=== PATIENT | male | born 2000 | race Caucasian/White ===

== ENCOUNTER 2024-03-13 10:55 | Observation (INO) | payer BC ==
[~2024-03-13] VITALS: Ht 198.1 cm; Wt 95.2 kg
[2024-03-13] MEDS: KETOROLAC 30 MG/ML 1ML VIAL IV ONE (12:55)
[2024-03-13] MEDS: NS 1,000 ML IV ONE (12:55)
[2024-03-13 12:59] LABS: BASO # 0.1 10^3/uL (0.0-0.2); BASO % 0.5 % (0.0-1.0); EOS # 0.4 10^3/uL (0.0-0.5); EOS % 2.7 % (0.0-3.0); HEMATOCRIT 46.4 % (42.0-52.0); HEMOGLOBIN 15.2 g/dl (13.5-17.5); LYMPH # 1.9 10^3/uL (1.5-5.0); LYMPH % 12.7 % (24.0-44.0); MEAN CORPUSCULAR HEMOGLOBIN 28.3 pg (27.0-33.0); MEAN CORPUSCULAR HGB CONC 32.8 g/dl (32.0-36.5); MEAN CORPUSCULAR VOLUME 86.2 fl (80.0-96.0); MONO # 1.7 10^3/uL (0.0-0.8); MONO % 11.1 % (2.0-8.0); NEUTROPHILS # 10.8 10^3/uL (1.5-8.5); NEUTROPHILS % 72.5 % (36.0-66.0); PLATELET COUNT, AUTOMATED 337 10^3/uL (150-450); RED BLOOD COUNT 5.38 10^6/uL (4.30-6.10); WHITE BLOOD COUNT 14.9 10^3/uL (4.0-10.0)
[2024-03-13] MEDS: AMPICILLIN SOD/SULBACTAM SOD 3 GM in D5W MINI-BAG PLUS 100 ML IV ONE (13:06)
[2024-03-13] MEDS: dexAMETHasone 20MG/5ML VIAL IV ONE (13:06)
[2024-03-13 13:19] LABS: ALBUMIN 4.2 G/DL (3.2-5.2); ALKALINE PHOSPHATASE 146 U/L (46-116); ALT/SGPT 25 U/L (7.0-40); AST/SGOT 13 U/L (<34); BILIRUBIN,TOTAL 1.8 MG/DL (0.3-1.2); BLOOD UREA NITROGEN 9 MG/DL (9-23); CALCIUM LEVEL 9.3 MG/DL (8.5-10.1); CARBON DIOXIDE LEVEL 30 MMOL/L (20-31); CHLORIDE LEVEL 101 MMOL/L (98-107); GLOMERULAR FILTRATION RATE > 60.0 (>60); GLUCOSE, FASTING 93 MG/DL (60-100); POTASSIUM SERUM 4.3 MMOL/L (3.5-5.1); SODIUM LEVEL 136 MMOL/L (136-145); TOTAL PROTEIN 7.7 G/DL (5.7-8.2)
[2024-03-13 13:49] LABS: MONO REFLEX EBV COMP NEGATIVE (NEGATIVE)
[2024-03-13] MEDS ORDERED: ISOVUE-370 76% 100ML VIAL As Ordered ONE (14:03)
[2024-03-13] MEDS: ACETAMINOPHEN *IV* 1,000 MG in IV 1 EA IV ONE (15:37)
[2024-03-13] MEDS ORDERED: HOME MED LIST COMPLETE! XX SCH (18:00)
[2024-03-13] MEDS ORDERED: KETOROLAC 30 MG/ML 1ML VIAL IV PRN (18:05)
[2024-03-13] MEDS ORDERED: ACETAMINOPHEN TAB 650MG DOSE (2X325MG) PO PRN (18:05)
[2024-03-13] MEDS: dexAMETHasone 20MG/5ML VIAL IV SCH (20:11)
[2024-03-13] MEDS: AMPICILLIN SOD/SULBACTAM SOD 3 GM in D5W MINI-BAG PLUS 100 ML IV SCH (20:12)
[2024-03-13 22:59] VITALS: BP 115/75; TEMP 97.9
[2024-03-14 04:50] VITALS: BP 115/68; TEMP 97.9; O2SAT 99
[2024-03-14 09:07] LABS: HEMATOCRIT 43.8 % (42.0-52.0); HEMOGLOBIN 14.5 g/dl (13.5-17.5); MEAN CORPUSCULAR HEMOGLOBIN 28.5 pg (27.0-33.0); MEAN CORPUSCULAR HGB CONC 33.1 g/dl (32.0-36.5); MEAN CORPUSCULAR VOLUME 86.2 fl (80.0-96.0); PLATELET COUNT, AUTOMATED 350 10^3/uL (150-450); RED BLOOD COUNT 5.08 10^6/uL (4.30-6.10); WHITE BLOOD COUNT 16.9 10^3/uL (4.0-10.0)
[2024-03-14 09:14] LABS: ERYTHROCYTE SEDIMENTATION RATE 31 mm/hr (0-15)
[2024-03-14 09:26] LABS: BLOOD UREA NITROGEN 8 MG/DL (9-23); CALCIUM LEVEL 9.3 MG/DL (8.5-10.1); CARBON DIOXIDE LEVEL 28 MMOL/L (20-31); CHLORIDE LEVEL 103 MMOL/L (98-107); CREATININE FOR GFR 0.62 MG/DL (0.70-1.30); GLOMERULAR FILTRATION RATE > 60.0 (>60); GLUCOSE, FASTING 131 MG/DL (60-100); POTASSIUM SERUM 4.4 MMOL/L (3.5-5.1); SODIUM LEVEL 140 MMOL/L (136-145)
[2024-03-14] MEDS ORDERED: AMOX875T2 PO (12:38)
[2024-03-16 14:33] LABS: EBV VIRAL CAPSID AG IGG > 750.00 U/mL (<18.00); EBV VIRAL CAPSID AG IGM < 36.00 U/mL (<36.00)
== END 2024-03-14 15:10 | disposition home or self-care (01) ==
LOC: M ED 10:55 → M ED INP 18:02 → UNDOADMOB 18:02 → M MS5PR 22:59
PROVIDERS: ADMIT Internal Medicine Nephrology; ATTEND Internal Medicine Nephrology
DX: J03.90 Acute tonsillitis, unspecified (principal); R13.10 Dysphagia, unspecified; R59.0 Localized enlarged lymph nodes; H92.01 Otalgia, right ear; D68.2 Hereditary deficiency of other clotting factors; Z86.718 Personal history of other venous thrombosis and embolism; Z90.89 Acquired absence of other organs
CPT/HCPCS: 36415; 70491; 80048; 80053; 85025; 85027; 85652; 86140; 86308; 86664; 86665; 96365; 96366; 96367; 96375; 96376; 99284; J0131; J0295; J1100; J1885; Q9967